=== PATIENT | male | born 1970 | race Caucasian/White ===

== ENCOUNTER 2024-06-12 08:19 | Emergency (ER) | payer MEDICAID ==
[~2024-06-12] VITALS: Ht 170.2 cm; Wt 61.2 kg
[2024-06-12 08:32] VITALS: TEMP 97.5; O2SAT 98
[2024-06-12] MEDS: LIDOCAINE 5% PATCH TOP STA (09:21)
[2024-06-12 09:22] VITALS: BP 148/78; PULSE 78; RESP 16; O2SAT 99
[2024-06-12] MEDS ORDERED: LIDO700A30 TP (09:29)
[2024-06-12] MEDS ORDERED: OXYC-100 MT (09:30)
== END 2024-06-12 09:53 | disposition home or self-care (01) ==
LOC: ER 08:35
DX: M54.50 Low back pain, unspecified (principal); R51.9 Headache, unspecified; W01.0XXA Fall on same level from slipping, tripping and stumbling without subsequent striking against object, initial encounter; Y93.89 Activity, other specified; Y92.89 Other specified places as the place of occurrence of the external cause; Y99.8 Other external cause status
CPT/HCPCS: 71045; 72131; 99284